=== PATIENT | female | born 1970 | race Caucasian/White ===

== ENCOUNTER 2017-01-22 22:22 | Emergency (ER) | payer OTHER ==
--- NOTE | 2017-01-22 22:27 | PDOC ---
History of Present Illness - General Chief Complaint: Pain Stated Complaint: PAIN L 5TH TOE Time Seen by Provider: 01/22/17 22:23 - History of Present Illness Initial Comments: This 46-year-old woman, otherwise healthy, presents with injury to her left fifth toe. Patient states that just prior to presentation, she accidentally impacted the left fifth toe against her son's heel/Achilles tendon area. Since then, she has had pain with walking and has noted that the toe is somewhat deformed (pointing away from the rest of the toes). No other injury sustained. Patient has no previous history of left foot/toe injury. No lacerations/abrasions or other skin injuries sustained. Past History - Past Medical History Allergies/Adverse Reactions: Allergies Allergy/AdvReac Type Severity Reaction Status Date / Time No Known Allergies Allergy Unverified 01/22/17 22:27 Home Medications: Ambulatory Orders NK [No Known Home Medication] 01/22/17 Review of Systems - Review of Systems Able to Perform ROS?: Yes ([]) Comments:: .12 point review of systems is negative except for what is noted in the history of present illness *Physical Exam - Physical Exam Comments: GENERAL: The patient is awake, alert, and fully oriented, in no acute distress. Vital signs as noted. HEAD: Normal with no signs of trauma. EYES: Pupils equal, round and reactive to light, extraocular movements intact, sclera anicteric, conjunctiva clear with no pallor. ENT: moist mucous membranes. Ears normal, nares patent, oropharynx clear without exudates. NECK: Normal range of motion, supple without lymphadenopathy, JVD, or masses. LUNGS: Breath sounds equal, clear to auscultation bilaterally. No wheeze/ crackles. HEART: Regular rate and rhythm, normal S1 and S2 without murmur or rub. ABDOMEN: Soft/nontender/nondistended. BS wnl. No guarding or rebound. No palpable masses. No hepatosplenomegaly. EXTREMITIES: Left footmild edema/moderate tenderness base of the fifth toe; toe is mildly displaced laterally No other tenderness/edema/deformity Remainder of the extremity exam is normal NEUROLOGICAL: Cranial nerves II through XII grossly intact. Normal speech, normal gait. PSYCH: Normal mood, normal affect. SKIN: Warm, Dry, normal turgor, no rashes or lesions noted. Left fifth toe x-ray performed. Interpretation by Dr. Quijano of the radiology staff: Lateral Subluxation of the middle phalanx without fracture/other dislocation Procedures - Joint Reduction Left Progress: Left fifth toe prepped using alcohol/Hibiclens solution. 3 mL of 1% lidocaine injected at the base of the toe at the approximate MCP joint. When anesthesia appeared to be present, longitudinal traction was placed on the toe and distal portion of the digit was gently moved medially, into better alignment. Although no palpable sensation of reduction occurred, patient felt relief from pain. Toe was leodan taped to the adjacent fourth toe with 2 x 2 gauze in the inter digit space. Progress Note - Progress Note Progress Note: Patient tolerated procedure of reduction of lateral subluxation/dislocation of the proximal middle phalanx of the left fifth toe. After toe was leodan taped to the fourth, patient was advised to follow-up with orthopedist within the next 2 days (patient and family's scheduled to leave for vacation in 3 days.) Patient given referral information for [facility]. Meanwhile, the patient should elevate foot as much as possible and use foot coverings with significant amount of until seen by orthopedist. *DC/Admit/Observation/Transfer Diagnosis at time of Disposition: Dislocation of fifth toe, left, closed Qualifiers: Encounter type: initial encounter Qualified Code(s): S93.105A - Unspecified dislocation of left toe(s), initial encounter - Discharge Dispostion Disposition: HOME Condition at time of disposition: Stable - Referrals Referrals: Aaron Lawrence MD [Staff Physician] - Call tomorrow - Patient Instructions Printed Discharge Instructions: Dislocated Toe Additional Instructions: Elevate/ice to toe overnight as much as possible Call orthopedist tomorrow to arrange follow-up within the next 48 hours Ibuprofen/naproxen/acetaminophen as needed for pain Return to ER if you have persistent, severe pain
[2017-01-22 22:30] VITALS: BP 150/80; PULSE 65; TEMP 97.8; BMI 21.9
== END 2017-01-22 23:34 | disposition home or self-care (01) ==
LOC: FER 22:22
PROC: 0SSQXZZ Reposition Left Toe Phalangeal Joint, External Approach (ICD-10-PCS; principal; 2017-01-22)
DX: S93.105A Unspecified dislocation of left toe(s), initial encounter (principal); W51.XXXA Accidental striking against or bumped into by another person, initial encounter; Y93.89 Activity, other specified; Y92.9 Unspecified place or not applicable
CPT/HCPCS: 73660-TC; 99282-25